=== PATIENT | female | born 1955 | race Caucasian/White ===

== ENCOUNTER 2018-08-06 10:19 | Emergency (ER) | payer OTHER ==
[~2018-08-06] VITALS: Ht 157.5 cm; Wt 86.2 kg
[2018-08-06] MEDS ORDERED: MICARDIS40 MG (10:39)
[2018-08-06] MEDS ORDERED: SYNTHROID100 MCG (10:40)
== END 2018-08-06 13:55 | disposition home or self-care (01) ==
LOC: ER 10:19
DX: J11.1 Influenza due to unidentified influenza virus with other respiratory manifestations (principal); B34.9 Viral infection, unspecified